=== PATIENT | male | born 1970 | race Caucasian/White ===

== ENCOUNTER 2022-11-24 07:17 | Day surgery (SDC) | payer BC ==
[~2022-11-24 07:17] MED LIST: Lactated Ringers 1,000 ML IV SCH; Sodium Chloride 0.9% 10 ML Syringe FLUSH PRN
[2022-11-24] MEDS ORDERED: Propofol 200 MG/20 ML SDV IV ONE (07:18)
[2022-11-24] MEDS ORDERED: Simethicone Drops 40 MG/0.6 ML 30 ML Bottle PO ONE (09:18)
[2022-11-24 11:34] VITALS: BP 138/87; PULSE 61
== END 2022-11-24 10:10 | disposition home or self-care (01) ==
LOC: FB.SDS 07:17
PROVIDERS: ATTEND Surgery
DX: Z12.11 Encounter for screening for malignant neoplasm of colon (principal); K57.30 Diverticulosis of large intestine without perforation or abscess without bleeding; F17.210 Nicotine dependence, cigarettes, uncomplicated; Z79.899 Other long term (current) drug therapy
CPT/HCPCS: 00812; 45378; A9270; J2704; J7120